=== PATIENT | male | born 1965 | race Caucasian/White ===

== ENCOUNTER 2023-08-26 07:55 | Outpatient (OUT) | payer BC, SELFPAY ==
--- NOTE | 2023-08-26 08:05 | ECG_ITS ---
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
[2023-08-26 08:55] LABS: Basophils Absolute Auto 0.1 10^3/uL (0.0-0.1); Basophils Percent Auto 1.1 % (0.2-2.0); Eosinophils Absolute Auto 0.3 10^3/uL (0.0-0.7); Eosinophils Percent Auto 5.3 % (0.9-7.0); Hematocrit 44.2 % (42.0-54.0); Hemoglobin 15.2 g/dL (14.0-18.0); Immature Granulocytes Abs Auto 0.01 10^3/uL (0.00-0.03); Immature Granulocytes Pct Auto 0.2 % (0.0-0.5); Lymphocytes Absolute Auto 1.4 10^3/uL (1.2-3.8); Lymphocytes Percent Auto 24.6 % (20.5-60.0); Mean Corpuscular HGB Conc 34.4 g/dL (29.9-35.2); Mean Corpuscular Hemoglobin 30.9 pg (25.9-34.0); Mean Corpuscular Volume 89.8 fL (80.0-94.0); Mean Platelet Volume 9.1 fL (9.5-13.5); Monocytes Absolute Auto 0.4 10^3/uL (0.3-0.8); Monocytes Percent Auto 6.6 % (1.7-12.0); Neutrophils Absolute Auto 3.5 10^3/uL (1.4-6.5); Neutrophils Percent Auto 62.2 % (43.0-75.0); Platelet Count 262 10^3/uL (150-450); Red Blood Count 4.92 10^6/uL (4.70-6.10); Red Cell Distribution Width 13.3 % (11.0-15.0); White Blood Count 5.6 10^3/uL (4.0-11.0)
[2023-08-26 09:16] LABS: INR 1.07; Partial Thromboplastin Time 30.5 sec (22.3-36.2); Prothrombin Time 11.3 sec (9.0-11.6)
[2023-08-26 09:27] LABS: Anion Gap 13.2; BUN Creatinine Ratio 15.8; Calcium 8.7 mg/dL (8.5-10.1); Carbon Dioxide 25.6 mmol/L (21.0-32.0); Chloride 106 mmol/L (98-107); Estimated GFR (African America >60 (>=60); Estimated GFR (Non-African Ame >60 (>=60); Glucose 140 mg/dL (74-106); Potassium 3.8 mmol/L (3.5-5.1); Sodium 141 mmol/L (136-145)
== END 2023-08-26 07:56 | disposition home or self-care (01) ==
LOC: PST 08:00
PROVIDERS: PCP Family Medicine; Visit Provider Urology
DX: Z01.810 Encounter for preprocedural cardiovascular examination (principal); Z01.812 Encounter for preprocedural laboratory examination; R97.20 Elevated prostate specific antigen [PSA]; D49.59 Neoplasm of unspecified behavior of other genitourinary organ
CPT/HCPCS: 80048; 85025; 85610; 85730; 93005

== ENCOUNTER 2023-09-09 07:47 | Day surgery (SDC) | payer BC, SELFPAY ==
[2023-08-26 08:09] VITALS: BP 110/60; PULSE 91; TEMP 36.3; O2SAT 97; BMI 27.0
[2023-09-09] VITALS (9 sets, daily range): BP systolic 100–134; BP diastolic 62–84; PULSE 69–83; TEMP 36.3–36.6; O2SAT 94–97; BMI 25.8
[2023-09-09] MEDS: LACTATED RINGER'S SOLUTION 1,000 ML 50 ML IV (08:17)
[2023-09-09] MEDS: GENTAMICIN SULFATE 120 MG in 0.9 % SODIUM CHLORIDE 100 ML 206 MG IV (09:12)
[2023-09-09] MEDS: CEFAZOLIN SODIUM/DEXTROSE,ISO 1 GM/50 ML IV.SOLN IV (09:37)
[2023-09-09] MEDS: LIDOCAINE 2% JELLY 20 ML UR (09:58)
--- NOTE | 2023-09-09 10:23 | PM.URSON ---
Urology Surgery Operative Note Operative Note Procedure Date: 09/09/23 Time Out Performed: yes Pre-op Diagnosis: Elevated PSA and prostate lesion by MRI Post-op Diagnosis: same as pre-op Procedures performed: 1. Transrectal ultrasound of the prostate. 2. Transrectal MRI fusion biopsies of the prostate with the Navigo system Anesthesia: General-LMA Primary Surgeon: Eugene Holder Complications: None Estimated blood loss (mL): 10 Findings: 1 prostate lesion by MRI Specimens: 6 biopsies from the area of interest sent separately labeled area of interest.6 biopsies from the left side going from the base towards the apex divided up into 3 levels. 6 biopsies from the right side similarly from the base towards the apex sent separately. Drains: None Indications for Procedures: This gentleman has an elevated PSA of 6.2.His prostate was benign by JOVITA. He has a direct family history of prostate cancer in his father. Prostate MRI revealed a PI-RADS 4 lesionHe now presents for MRI fusion biopsies of the prostate. He has signed an informed consent after all risks were explained. Some of these risks include bleeding, infection, urosepsis and anesthesia to name a few. Detailed description of Procedure: The patient was [facility] bed and brought into the operating room. While in the supine position timeout was done by all parties in the room. We all agreed upon the patient's identification and the planned procedures for this patient. General anesthesia was then administered via LMA. He was then rotated in the left lateral decubitus position. 2% lidocaine gel was passed per rectum. The Navigo Ultrasound probe was passed per rectum. We then did segmentation so as to superimpose the MRI images onto the live ultrasound. We identified the area of interest and we then took 6 biopsies from this area of interest and these were sent separately labeled area of interest. We then did our mapped out biopsies starting on the left side. We went from the base towards the apex and took 2 biopsies from each Of 3 locations. These were all sent in 3 separate containers labeled base mid and apex. A similar maneuver was done on the right side. The ultrasound probe was removed. He was rotated in the supine position. He was then transferred to PACU in stable condition. Both he and his spouse were reminded to finish his antibiotic course. Also, if he were to get a fever near 101 and or shaking chills he was instructed to present to the emergency room for IV antibiotics.
--- NOTE | 2023-09-09 11:10 | PC.NURSE ---
1105; pt up to bathrooom with minimal assistance. pt voids without difficulty,clear,yellow.
== END 2023-09-09 11:35 | disposition home or self-care (01) ==
PROVIDERS: PCP Family Medicine; Visit Provider Urology
PROC: (CPT 902; principal; 2023-09-09 09:15)
DX: C61 Malignant neoplasm of prostate (principal); R97.20 Elevated prostate specific antigen [PSA]; D49.59 Neoplasm of unspecified behavior of other genitourinary organ; Z80.42 Family history of malignant neoplasm of prostate; G47.33 Obstructive sleep apnea (adult) (pediatric); E78.5 Hyperlipidemia, unspecified; K21.9 Gastro-esophageal reflux disease without esophagitis
CPT/HCPCS: 55700; 36415; 88305; J0690; J1100; J1580; J2250; J2371; J2405; J2704

== ENCOUNTER 2024-09-28 08:12 | Outpatient (OUT) | payer BC, SELFPAY ==
--- NOTE | 2024-09-28 08:22 | ECG_ITS ---
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 Measurements Intervals [place] Rate: 86 P: 64 MI: 173 QRS: -68 QRSD: 106 T: 64 QT: 356 QTc: 426 Interpretive Statements SINUS RHYTHM LEFT ANTERIOR FASCICULAR BLOCK [QRS AXIS <= -45, QR IN I, RS IN II] Abnormal ECG Compared to ECG 08/26/2023 08:42:22 Myocardial infarct finding no longer present Electronically Signed On 09-28-2024 21:01:05 EDT by SHERRILL BARRERA M.D.
[2024-09-28 09:01] LABS: Hematocrit 43.9 % (42.0-54.0); Hemoglobin 15.0 g/dL (14.0-18.0); Immature Granulocytes Abs Auto 0.02 10^3/uL (0.00-0.03); Immature Granulocytes Pct Auto 0.4 % (0.0-0.5); Lymphocytes Absolute Auto 1.3 10^3/uL (1.2-3.8); Mean Corpuscular HGB Conc 34.2 g/dL (29.9-35.2); Mean Corpuscular Hemoglobin 30.5 pg (25.9-34.0); Mean Corpuscular Volume 89.2 fL (80.0-94.0); Platelet Count 230 10^3/uL (150-450); Red Blood Count 4.92 10^6/uL (4.70-6.10); White Blood Count 5.1 10^3/uL (4.0-11.0)
--- NOTE | 2024-09-28 09:17 | PM.PRESUREVA ---
History of Present Illness History of Present Illness Chief complaint: prostate cancer Narrative: Patient presents for surgical testing. The patient states he had an elevated PSA followed by a prostate biopsy and an MRI of his prostate and is now scheduled for an additional biopsy. The patient states he has no urinary complaints. He denies abdominal pain, nausea, vomiting, fever, urinary retention, nocturia, hematuria, or any other complaints. Review of Systems ROS Narrative REVIEW OF SYSTEMS: Negative except as stated in HPI, ten or more systems reviewed. Constitutional: No fever, chills, weakness ENT: No sore throat or epistaxis Cardiovascular: No edema, chest pain, palpitations, or activity intolerance Respiratory: No shortness of breath, cough, or wheezing Musculoskeletal: No joint pain or swelling Gastrointestinal: No abdominal pain, constipation, diarrhea, or vomiting Genitourinary: No dysuria or hematuria Neurological: No numbness, tingling, weakness, or headache Psychiatric: No mood changes PFSH PFS Medical History (Updated 09/28/24 @ 08:43 by Lynette Last NP) Prostate cancer ?C61 - Malignant neoplasm of prostate (ICD-10) Dyspnea on exertion ?R06.09 - Other forms of dyspnea (ICD-10) Abnormal EKG ?R94.31 - Abnormal electrocardiogram [ECG] [EKG] (ICD-10) Eye cancer ?C69.90 - Malignant neoplasm of unspecified site of unspecified eye (ICD-10) Neck pain ?M54.2 - Cervicalgia (ICD-10) Anxiety ?F41.9 - Anxiety disorder, unspecified (ICD-10) COVID-19 ?U07.1 - COVID-19 (ICD-10) Sleep apnea ?G47.30 - Sleep apnea, unspecified (ICD-10) GERD (gastroesophageal reflux disease) ?K21.9 - Gastro-esophageal reflux disease without esophagitis (ICD-10) Hyperlipidemia ?E78.5 - Hyperlipidemia, unspecified (ICD-10) Elevated PSA ?R97.20 - Elevated prostate specific antigen [PSA] (ICD-10) Surgical History (Updated 09/28/24 @ 08:39 by Lynette Last NP) History of colonoscopy ?Z98.890 - Other specified postprocedural states (ICD-10) History of mandibular surgery ?Z98.890 - Other specified postprocedural states (ICD-10) H/O prostate biopsy (09/09/23) ?Z98.890 - Other specified postprocedural states (ICD-10) Hx of eye surgery ?Z98.890 - Other specified postprocedural states (ICD-10) Hx of hernia repair ?Z98.890 - Other specified postprocedural states (ICD-10) ?Z87.19 - Personal history of other diseases of the digestive system (ICD-10) History of appendectomy ?Z90.49 - Acquired absence of other specified parts of digestive tract (ICD-10) Family History (Updated 09/28/24 @ 08:40 by Lynette Last NP) Son Family history of aneurysm Other Family history of hypertension Heart disease Lung cancer Mental health disorder Prostate cancer Social History (Updated 08/26/23 @ 08:16 by Kika Dougherty RN) Within the past year, how often did you have a drink containing alcohol: 2-4 times a month Within the past year, how many standard drinks containing alcohol did you have on a typical day: 1 or 2 Within the past year, how often did you have six or more drinks on one occasion: never Total score: 0 Score interpretation: A score less than 4 is consistent with normal alcohol consumption. Smoking status: Never smoker Second hand tobacco smoke exposure: No Non-prescribed substance use: denies use Previous occupational history: [employer] Highest level of school completed/degree received: some college, no degree Meds Home Medications and Allergies Home Medications ?Medication ?Instructions ?Recorded ?Confirmed ?Type omeprazole 20 mg capsule,delayed 20 mg PO DAILY 08/20/23 09/28/24 History release rosuvastatin 10 mg tablet 10 mg PO DAILY 08/20/23 09/28/24 History ciprofloxacin HCl 500 mg tablet 500 mg PO DAILY 09/09/23 09/28/24 History Allergies Allergy/AdvReac Type Severity Reaction Status Date / Time barium sulfate Allergy Severe sweating, Verified 09/28/24 08:34 chills, fever latex Allergy Severe itching Verified 09/28/24 08:34 Exam Narrative Exam Narrative: Constitutional: Awake, alert, comfortable, well-appearing, nontoxic, interactive, vital signs as charted Head: Normocephalic, atraumatic Neck: Supple, normal appearance, normal range of motion, no meningeal signs, no lymphadenopathy Respiratory: No respiratory distress, breath sounds clear Cardiovascular: Regular rate and rhythm, strong and regular heart tones Abdomen: Nontender, normal bowel sounds, soft, no CVA tenderness Musculoskeletal: Normal gait, no swelling or edema Skin: No rashes or induration, no lesions, only visible skin inspected Neuro: No neurological deficits, normal sensation Psychiatric: Oriented ?3, normal affect Assessment and Plan Assessment and Plan (1) Prostate cancer: Plan TRUS biopsy scheduled with Dr. Holder October 05, 2024.
[2024-09-28 09:26] LABS: Anion Gap 12.6; Blood Urea Nitrogen 15.0 mg/dL (7.0-18.0); Calcium 9.0 mg/dL (8.5-10.1); Carbon Dioxide 28.3 mmol/L (21.0-32.0); Chloride 103 mmol/L (98-107); Estimated GFR (African America >60 (>=60 mL/min/1.73m^2); Estimated GFR (Non-African Ame >60 (>=60 mL/min/1.73m^2); Glucose 132 mg/dL (74-106); Potassium 3.9 mmol/L (3.5-5.1); Sodium 140 mmol/L (136-145)
[2024-09-28 10:24] LABS: Partial Thromboplastin Time 28.8 sec (22.3-36.2)
[2024-09-28 10:29] LABS: INR 1.04; Prothrombin Time 11.0 sec (9.0-11.6)
== END 2024-09-28 08:13 | disposition home or self-care (01) ==
LOC: PST 08:15
PROVIDERS: PCP Family Medicine; Visit Provider Urology
DX: Z01.810 Encounter for preprocedural cardiovascular examination (principal); Z01.812 Encounter for preprocedural laboratory examination; Z01.818 Encounter for other preprocedural examination; C61 Malignant neoplasm of prostate
CPT/HCPCS: 36415; 80048; 85025; 85610; 85730; 93005; G0463

== ENCOUNTER 2024-10-05 06:55 | Day surgery (SDC) | payer BC, SELFPAY ==
[2024-09-28 08:58] VITALS: BP 121/73; PULSE 86; TEMP 36.2; O2SAT 97; BMI 26.3
--- OUTSIDE RECORDS SUMMARY | 2024-10-05 06:58 | XMS_ITS | Encounter Summary ---
Author Organization [facility] Address [address] [place] [address] Phone Care Team Providers Care Rn School Name Role Phone Mary Larry DO Primary Care Provider [phone] Eugene Holder MD Unavailable [phone] Encounter Details Date Type Department Care Team (Late st Contact Info) Description 05/25/2023 Scanned Document [facility] [address] [place] [id number] Scanning, Generic Provider Social History Tobacco Use Types Packs/Day Years Used Date Smoking Tobacco: Never Assessed Sex and Gender Information Value Date Recorded Sex Assigned at Not on file Legal Sex Male 1:51 PM EDT Gender Identity Not on file Sexual Orientation Not on file documented as of this encounter Plan of Treatment Upcoming Encounters Date Type Department Care Team (Late Contact Info) Description 10/02/2025 1:30 PM EDT Office Visit [place] [id number] [facility] [address] [place] [address] Lauren Oconnell MD [address] [facility] [address], [address] [place] [address] documented as of this encounter Visit Diagnoses Not on filedocumented in this encounter Care Teams Rn School Relationship Specialty Start Date End Date Mary Larry DO [address] [place] [address] PCP - General Family Medicine 09/03/23 Eugene Holder MD [address] [place] [address] Referring Physician Urology 09/03/23 documented as of this encounter
--- OUTSIDE RECORDS SUMMARY | 2024-10-05 06:58 | XMS_ITS | Encounter Summary ---
Author Organization [facility] Address [address] [place] [address] Phone Care Team Providers Care Compo Caster Name Role Phone Mary Larry DO Primary Care Provider [phone] Eugene Holder MD Unavailable [phone] Encounter Details Date Type Department Care Team (Latest Contact Info) Description 09/28/2024 Travel Social History Tobacco Use Types Packs/Day Years Used Date Smoking Tobacco: Never Smokeless Tobacco: Never Alcohol Use Standard Drinks/Week Comments Yes 0 (1 standard drink = 0.6 oz pur e alcohol) socially Sex and Gender Information Value Date Recorded Sex Assigned at Not on file Legal Sex Male 1:51 PM EDT Gender Identity Not on file Sexual Orientation Not on file documented as of this encounter Plan of Treatment Upcoming Encounters Date Type Department Care Team (Late st Contact Info) Description 10/02/2025 1:30 PM EDT Office Visit [place] [id number] [address] Lauren Oconnell MD [address] [facility] 2, [facility] [address] [place], [place] [id number] documented as of this encounter Visit Diagnoses Not on filedocumented in this encounter Care Teams Compo Caster Relationship Specialty Start Date End Date Mary Larry DO [address] [place] [address] PCP - General Family Medicine 09/03/23 Eugene Holder MD [address] [facility] [place] [address] Referring Physician Urology 09/03/23 documented as of this encounter
--- OUTSIDE RECORDS SUMMARY | 2024-10-05 06:58 | XMS_ITS | Clinical Summary ---
Author Organization [facility] Address [address] [place], [place] [id number] Care Team Providers Care Six Horse Hitch Driver Name Role Phone Perry Lance Primary Care Provider [phone] Allergies Active Allergy Reactions Criticality Noted Date Comments Iodine Unknown 03/31/2018 Latex Rash 05/09/2018 Medications atorvastatin (LIPITOR) 20 mg tablet Take 20 mg by mouth once daily. Active rosuvastatin (CRESTOR) 10 mg tablet Take 1 tablet by mouth once daily. 11/17/2019 Active MULTIVITAMIN ORAL Take 1 capsule by mouth once daily. Active Active Problems Problem Noted Date Diagnosed Date Myofascial pain 03/31/2018 Dystonia 03/31/2018 Social History Tobacco Use Types Packs/Day Years Used Date Smoking Tobacco: Never Smokeless Tobacco: Never Alcohol Use Standard Drinks/Week Comments No 0 (1 standard drink = 0.6 oz pur e alcohol) PHQ-2 Answer Date Recorded PHQ-2 score 5 03/31/2018 Area Deprivation Index Answer Date Yan rded National Score (1-100), lower number is lower ri sk Not on file 02/04/2020 State Score (1-10), lower number is lower risk N ot on file 02/04/2020 Data from: https://www.neighborhoodatlas.medicine.[facility].edu/. Last address used for calculation Not on file 02/04/2020 Sex and Gender Information Value Date Recorded Sex Assigned at Not on file Legal Sex Male 9:25 AM EST Gender Identity Not on file Sexual Orientation Not on file Last Filed Vital Signs Vital Sign Reading Time Taken Comments Blood Pressure 114/75 12/07/2019 10:06 AM EDT Pulse 93 12/07/2019 10:06 AM EDT Temperature 36.7 C (98.1 F) 06/15/2018 4:52 PM EDT Respiratory Rate 20 12/07/2019 10:06 AM EDT Oxygen Saturation 98% 12/07/2019 10:06 AM EDT Inhaled Oxygen Concentration - - Weight 92.1 kg (203 lb) 12/07/2019 10:06 AM EDT Height 180.3 cm (5' 11 ) 12/07/2019 10:06 AM EDT Body Mass Index 28.31 12/07/2019 10:06 AM EDT Plan of Treatment Health Maintenance Due Date Last Done Comments Anxiety Screening 02/04/1984 Depression Screening 02/04/1984 HIV Screening 02/04/1984 Hepatitis C Screening 02/04/1984 DTaP,Tdap,Td Vaccine (1 - Tdap) 1985 Hepatitis B Vaccine (1 of 3 - 19+ 3-dose series) 02/[address] Colonography 2011 Cologuard (FIT-DNA) 2011 Colonoscopy 2011 Colorectal Cancer Screening 2011 Diabetes Screening 2011 Fecal Occult Blood 2011 Prostate Cancer Screening Discussion 2011 Sigmoidoscopy 2011 Pneumococcal Vaccine: 50+ (1 of 1 - PCV) 02/04/2016 Shingrix Vaccine (1 of 2) 02/04/2016 Influenza Vaccine (#1) 2024 Insurance Care Teams Six Horse Hitch Driver Relationship Specialty Start Date End Date Perry Lance [address] [place] [address] PCP - General Family Medicine 05/09/18 Quincy Stanford [address] [facility] [address] Referring Pain Management 03/24/18
--- OUTSIDE RECORDS SUMMARY | 2024-10-05 06:58 | XMS_ITS | Clinical Summary ---
Author Organization [facility] Address [address] [place] [address] Phone Care Team Providers Care Manufacturing Lead Name Role Phone Mary Larry DO Primary Care Provider [phone] Eugene Holder MD Unavailable [phone] Allergies Active Allergy Reactions Criticality Noted Date Comments Adhesive Tape-Silicones Rash Low 09/03/2023 Barium Iodide Chills 09/03/2023 sweating Medications rosuvastatin (Crestor) 10 mg tablet Take 1 tablet (10 mg) by mouth once daily. 08/28/2023 Active omeprazole (PriLOSEC) [address] capsule Take 1 capsule (20 mg) by mouth once daily in the morning. Take before meals. 08/28/2023 Active Active Problems Problem Noted Date Diagnosed Date Encounter for pre-operative cardiovascular clear ance 09/03/2023 Abnormal EKG 09/03/2023 Mixed hyperlipidemia 09/03/2023 BMI 26.0-26.9,adult 09/03/2023 Never smoked tobacco 09/03/2023 Encounters Date Type Department Care Team Description 09/28/2024 3:00 PM EDT Office Visit [address] [address] Lauren Oconnell MD Mixed hyperlipidemia (Primary Dx); Encounter for pre-operative cardiovascular clearance; Abnormal EKG; BMI 26.0-26.9,adult; Never smoked tobacco 09/28/2024 Travel from Last 3 Months Family History Medical History Relation Name Comments Brain cancer Brother carotid stent Brother Prostate cancer Father Cancer Mother Hypertension Mother Relation Name Status Comments Brother Father Mother Social History Tobacco Use Types Packs/Day Years Used Date Smoking Tobacco: Never Smokeless Tobacco: Never Tobacco Cessation:Counseling Given: Not Answered Alcohol Use Standard Drinks/Week Comments Yes 0 (1 standard drink = 0.6 oz pur e alcohol) socially Sex and Gender Information Value Date Recorded Sex Assigned at Not on file Legal Sex Male 1:51 PM EDT Gender Identity Not on file Sexual Orientation Not on file Last Filed Vital Signs Vital Sign Reading Time Taken Comments Blood Pressure 128/78 09/28/2024 3:16 PM EDT Pulse 74 09/28/2024 3:16 PM EDT Temperature - - Respiratory Rate - - Oxygen Saturation - - Inhaled Oxygen Concentration - - Weight 87.6 kg (193 lb 3.2 oz) 09/28/2024 3:16 P M EDT Height 180.3 cm (5' 11 ) 09/28/2024 3:16 PM EDT Body Mass Index 26.95 09/28/2024 3:16 PM EDT Plan of Treatment Upcoming Encounters Date Type Department Care Team (Late st Contact Info) Description 10/02/2025 1:30 PM EDT Office Visit [facility] [address] [address] Lauren Oconnell MD 703 [facility] [address], [address] [place] [address] Health Maintenance Due Date Last Done Comments CT Colonography 1966 Colonoscopy 1966 Colorectal Cancer Screening 1966 FIT-DNA (Cologuard) 1966 FIT 1966 HIV Screening 1966 Lipid Panel 1966 Sigmoidoscopy 1966 Yearly Adult Physical 1966 MMR Vaccines (1 of 1 - Stand james series) 1967 Diabetes Screening 02/04/1984 Hepatitis C Screening 02/04/1984 Hepatitis B Vaccines (1 of 3 - 19+ 3-dose series) 1985 DTaP/Tdap/Td Vaccines (1 - Tdap) 02/04/1988 PSA Prostate Cancer Screening 02/04/2016 Pneumococcal Vaccine (1 of 1 - PCV) 02/04/2016 Zoster Vaccines (1 of 2) 02/04/2016 COVID-19 Vaccine (1 - 2023-2 5 season) 2023 Influenza Vaccine (#1) 2024 HIB Vaccines Aged Out No longer eligi ble based on patient's age to complete this topic HPV Vaccines Aged Out No longer eligi ble based on patient's age to complete this topic Hepatitis A Vaccines Aged Out No long er eligible based on patient's age to complete this topic IPV Vaccines Aged Out No longer eligi ble based on patient's age to complete this topic Meningococcal Vaccine Aged Out No erwin seun eligible based on patient's age to complete this topic Rotavirus Vaccines Aged Out No longer eligible based on patient's age to complete this topic Procedures Procedure Name Priority Date/Time Associated Diagnosis Comments ECG 12-LEAD Routine 09/28/2024 3:04 PM EDT Abnormal EKG from Last 3 Months Results * ECG 12 Lead (09/28/2024 3:04 PM EDT) Narrative CPACS - 09/28/2024 4:13 PM EDT Normal sinus rhythm with left axis deviation and left anterior fascicular hemiblock unchanged from before us Lauren Oconnell MD ECG ORDERABLES Final Resu lt CPACS from Last 3 Months [facility] Care [facility] Manufacturing Lead Relationship Specialty Start Date End Date Mary Larry DO [address] [facility] [place] [address] PCP - General Family Medicine 09/03/23 Eugene Holder MD [address] [facility] [place] [address] Referring Physician Urology 09/03/23
[2024-10-05 07:13] VITALS: BP 131/82; PULSE 74; TEMP 35.8; O2SAT 99
[2024-10-05] MEDS: GENTAMICIN SULFATE 120 MG in 0.9 % SODIUM CHLORIDE 100 ML 206 MG IV (07:25)
--- NOTE | 2024-10-05 07:32 | US_ITS ---
[address] [address] Patient Name: DINESH LIND MRN: [id number] date: 1965 Sex: M Assigned Patient Location: [facility] Current Patient Location: Accession/Order Number: [id number] Exam Date: 10/05/2024 13:25 Report Date: 10/05/2024 13:30 At the request of: MAIA TREVINO MD Procedure: US prostate Ultrasound guided prostate biopsy. Reason for exam: Prostate cancer. TECHNIQUE: Ultrasound guided prostate biopsy performed by the urology service. No radiologist was present for procedure. The prostate gland measures 5.4 x 4.9 x 3.1 cm for a prostate volume of 43 mL. Predicted PSA is 5.15. US/US prostate IMPRESSION: Ultrasound-guided prostate biopsy. Impression dictated by: Allie Cartwright Jr.OCharlotte 10/05/2024 1:30 PM Dictation Location: [place] [address] Electronically authenticated by: [id number] Y Date: 10/05/2024 13:30
[2024-10-05] MEDS: CEFAZOLIN SODIUM 1 GM/50 ML D5W PREMIX IV (07:59)
[2024-10-05] MEDS: LIDOCAINE 2% JELLY 10 ML UR (08:18)
--- NOTE | 2024-10-05 08:33 | PM.URSON ---
Urology Surgery Operative Note Operative Note Procedure Date: 10/05/24 Time Out Performed: yes Pre-op Diagnosis: Prostate cancer; active surveillance Post-op Diagnosis: same as pre-op Procedures performed: 1. Transrectal ultrasound of the prostate. 2. Prostate needle biopsies Anesthesia: MAC and local Primary Surgeon: Eugene Holder Complications: None Estimated blood loss (mL): 15 Findings: two hypoechoic areas. 1 on the left apex and the other on the right apex Specimens: 4 biopsy cores from each of 4 levels on the left side and 2 biopsy cores from each of the 3 levels on the right side but at the apex on the right 4 cores were taken Indications for Procedures: This gentleman has a history of prostate cancer Yanira score 3+4 equal 7 in 3 cores which was diagnosed in August 2023.. His PSA has remained stable at 3.8. He now presents for confirmatory biopsy 1 year after diagnosis. He has signed an informed consent for transrectal ultrasound and prostate biopsies. Some of these risks include bleeding, infection, urosepsis and anesthesia to name a few. Detailed description of Procedure: The patient was brought to the Endo suite and kept on the [facility] bed in the supine position. Timeout was done by all parties in the room. We all agreed upon the patient's identification and the planned procedures for this patient. MAC anesthesia was then administered. He was then rotated to the left lateral decubitus position. The first maneuver was to swab his rectum with Betadine soaked sponges 3 times. I then passed 2% lidocaine gel per rectum. The ultrasound probe was then passed per rectum. The prostate was scanned in the transverse and sagittal views. The volume was calculated to be 43 g. There were 2 hypoechoic areas noted. One was at the left apex the other was at the right apex. There were a few scattered calcifications. While in the sagittal view we started at the left base and began taking biopsies going from the base towards the apex. We divided it up into 4 levels and from each level we took 4 biopsies on the left side. After obtaining 16 satisfactory cores from the left we then began doing biopsies on the right. We took 2 biopsies from the R1 2 and 3 levels. At R4, the apex, we took 4 biopsies due to the hypoechoic area noted. At the end of the procedure we had 26 satisfactory cores. The probe was removed. He was then rotated to the supine position and then transferred to PACU in stable condition.
[2024-10-05 08:36] VITALS: BP 97/66; PULSE 72; TEMP 36.5; O2SAT 94
[2024-10-05 08:51] VITALS: BP 108/63; PULSE 79; O2SAT 96
[2024-10-05 09:06] VITALS: BP 120/79; PULSE 80; O2SAT 96
[2024-10-05 09:21] VITALS: BP 117/72; PULSE 80; O2SAT 97
== END 2024-10-05 09:27 | disposition home or self-care (01) ==
LOC: SURGOUT 06:56
PROVIDERS: PCP Family Medicine; Visit Provider Urology
PROC: (CPT 902; principal; 2024-10-05 08:00)
DX: C61 Malignant neoplasm of prostate (principal); F32.A Depression, unspecified; E78.5 Hyperlipidemia, unspecified; Z80.42 Family history of malignant neoplasm of prostate; K21.9 Gastro-esophageal reflux disease without esophagitis; Z90.49 Acquired absence of other specified parts of digestive tract; R97.20 Elevated prostate specific antigen [PSA]; G47.33 Obstructive sleep apnea (adult) (pediatric)
CPT/HCPCS: 55700; 36415; 76872; J0690; J1100; J1580; J1885; J2250; J2371; J2405; J2704; J3010